=== PATIENT | female | born 1995 | race Caucasian/White ===

== ENCOUNTER 2018-03-11 08:39 | Emergency (ER) | payer OTHER ==
[~2018-03-11] VITALS: Ht 175.3 cm; Wt 68.0 kg
[~2018-03-11 08:39] MED LIST: CIPROFLOXACIN250 MG PO; HYDROCODON-ACE1 EA11 PO; K-TAB10 MEQ PO; MIRALAX17 GM PO; NORCO 5-325 TA1 EACH PO
[2018-03-11] MEDS ORDERED: MEDROL4 MG PO (09:09)
[2018-03-11] MEDS ORDERED: NAPROSYN500 MG PO (09:09)
== END 2018-03-11 09:20 | disposition home or self-care (01) ==
LOC: ED 08:39
DX: M77.9 Enthesopathy, unspecified (principal); F17.200 Nicotine dependence, unspecified, uncomplicated; Z88.5 Allergy status to narcotic agent
CPT/HCPCS: 73030; 99283

== ENCOUNTER 2018-08-06 15:33 | Emergency (ER) | payer OTHER ==
[~2018-08-06] VITALS: Ht 175.3 cm; Wt 68.0 kg
[~2018-08-06 15:33] MED LIST changes: +MEDROL4 MG PO; +NAPROSYN500 MG PO
[2018-08-06] MEDS ORDERED: ONDANSETRON ODT8 MG PO (18:00)
[2018-08-06] MEDS ORDERED: NORCO 5-325 TA1 EACH PO (18:00)
== END 2018-08-06 18:55 | disposition home or self-care (01) ==
LOC: ED 15:33
DX: S90.32XA Contusion of left foot, initial encounter (principal); F17.200 Nicotine dependence, unspecified, uncomplicated; Z88.5 Allergy status to narcotic agent; W22.8XXA Striking against or struck by other objects, initial encounter
CPT/HCPCS: 73630; 99283

== ENCOUNTER 2018-11-16 11:44 | Emergency (ER) | payer OTHER ==
[~2018-11-16] VITALS: Ht 175.3 cm; Wt 66.7 kg
[~2018-11-16 11:44] MED LIST changes: +ONDANSETRON ODT8 MG PO
== END 2018-11-16 12:02 | disposition home or self-care (01) ==
LOC: ED 11:44
DX: M54.6 Pain in thoracic spine (principal)

== ENCOUNTER 2018-11-20 20:11 | Emergency (ER) | payer OTHER ==
[~2018-11-20] VITALS: Ht 175.3 cm; Wt 66.7 kg
--- OUTSIDE RECORDS SUMMARY | 2018-11-20 20:16 | XMS ---
PreManage Notification: RICKI FLORES Security Building Construction Ironworker Events No recent Security Events currently on file CRITERIA MET - [facility] - 2 Visits in 30 Days CARE PROVIDERS There are no care providers on record at this time. Ray has no Care Guidelines for this patient. [facility] MO[facility] NOTE: Visits indicate total known visits. ED/C VISIT TRACKING (12 MO.) 11/20/2018 20:[address] [facility] [place] TYPE: Emergency COMPLAINT: - BACK PAIN/INJURY 11/16/2018 11:44 [facility] [place] TYPE: Emergency COMPLAINT: - BACK PAIN NON INJURY DIAGNOSES: - Pain in thoracic spine 08/06/2018 15:34 [facility] [place] TYPE: Emergency COMPLAINT: - L FOOT PAIN/INJURY DIAGNOSES: - Nicotine dependence, unspecified, uncomplicated - Contusion of left foot, initial encounter - Allergy status to narcotic agent status - Striking against or struck by other objects, initial encounter - Pain in left foot 03/11/2018 08:41 [facility] [place] TYPE: Emergency COMPLAINT: - L SHOULDER PAIN/NO INJURY DIAGNOSES: - Pain in left shoulder - Allergy status to narcotic agent status - Enthesopathy, unspecified - Nicotine dependence, unspecified, uncomplicated INPATIENT VISIT TRACKING (12 MO.) No inpatient visits to display in this time frame [email or web address]
[2018-11-20] MEDS ORDERED: IBUPROFEN600 MG PO (20:44)
[2018-11-20] MEDS ORDERED: NEXPLANON68 MG SUB-Q (20:45)
[2018-11-20] MEDS ORDERED: DIAZEPAM5 MG PO (21:52)
== END 2018-11-20 22:08 | disposition home or self-care (01) ==
LOC: ED 20:11
DX: M79.18 Myalgia, other site (principal); F17.200 Nicotine dependence, unspecified, uncomplicated; Z88.5 Allergy status to narcotic agent
CPT/HCPCS: 72040; 99283-25

== ENCOUNTER 2019-02-08 17:15 | Emergency (ER) | payer OTHER ==
[~2019-02-08] VITALS: Ht 175.3 cm; Wt 64.7 kg
[~2019-02-08 17:15] MED LIST changes: +DIAZEPAM5 MG PO; +IBUPROFEN600 MG PO; +NEXPLANON68 MG SUB-Q
--- OUTSIDE RECORDS SUMMARY | 2019-02-08 17:18 | XMS ---
PreManage Notification: RICKI FLORES Security Window Clerk Events No recent Security Events currently on file CRITERIA MET - Group Notification - PDMP CARE PROVIDERS There are no care providers on record at this time. Ray has no Care Guidelines for this patient. EKrupaDKrupa VISIT COUNT (12 MO.) 5 [facility] TOTAL 5 NOTE: Visits indicate total known visits. ED/UCC VISIT TRACKING (12 MO.) 02/08/2019 17:15 [facility] [place] TYPE: Emergency COMPLAINT: - CONSTIPATION/HEADACHE 11/20/2018 20:12 [facility] TYPE: Emergency COMPLAINT: - BACK PAIN/INJURY DIAGNOSES: - Pain in thoracic spine - Nicotine dependence, unspecified, uncomplicated - Allergy status to narcotic agent status - MYALGIA, OTHER SITE 11/16/2018 11:44 [facility] [place] TYPE: Emergency [...] visits to display in this time frame [email or web address]
== END 2019-02-08 18:08 | disposition home or self-care (01) ==
LOC: ED 17:15
DX: K59.00 Constipation, unspecified (principal); F17.200 Nicotine dependence, unspecified, uncomplicated; Z88.5 Allergy status to narcotic agent
CPT/HCPCS: 99283

== ENCOUNTER 2019-04-26 18:15 | Emergency (ER) | payer OTHER ==
[~2019-04-26] VITALS: Ht 175.3 cm; Wt 64.4 kg
--- OUTSIDE RECORDS SUMMARY | 2019-04-26 18:18 | XMS ---
PreManage Notification: RICKI FLORES Security Manager Star Events No recent Security Events currently on file CRITERIA MET - Group Notification - [facility] - Has Care Guidelines CARE PROVIDERS There are no care providers on record at this time. Ray has no Care Guidelines for this patient. Care History Medical/Surgical 02/09/2019 [facility] - [facility]W RECEIVED ED CASE MANAGEMENT CONSULT- PATIENT DOES NOT HAVE A PCP AND HAS [employer] INSURANCE. - [facility] CASE MANAGEMENT REFERRAL MADE- PATIENT HAS [employer] AND NO PCP. E.D. VISIT COUNT (12 MO.) 5 [facility] TOTAL 5 NOTE: Visits indicate total known visits. ED/UCC VISIT TRACKING (12 MO.) 04/26/2019 18:16 [facility] [place] TYPE: Emergency COMPLAINT: - DIZZINESS/6-8 WEEKS 02/08/2019 17:15 [facility] [place] TYPE: Emergency COMPLAINT: - CONSTIPATION/HEADACHE DIAGNOSES: - Nicotine dependence, unspecified, uncomplicated - Allergy status to narcotic agent status - Constipation, unspecified 11/20/2018 20:12 [facility] [place] TYPE: Emergency COMPLAINT: - BACK PAIN/INJURY DIAGNOSES: - Pain in thoracic spine - Nicotine dependence, unspecified, uncomplicated - Allergy status to narcotic agent status - MYALGIA, OTHER SITE 11/16/2018 11:44 [facility] [place] TYPE: Emergency COMPLAINT: - BACK PAIN NON INJURY DIAGNOSES: - Pain in thoracic spine 08/06/2018 15:[address] [facility] [place] TYPE: Emergency COMPLAINT: - L FOOT PAIN/INJURY DIAGNOSES: - Nicotine dependence, unspecified, uncomplicated - Contusion of left foot, initial encounter - Allergy status to narcotic agent status - Striking against or struck by other objects, initial encounter - Pain in left foot INPATIENT VISIT TRACKING (12 MO.) No inpatient visits to display in this time frame [email or web address]
[2019-04-26] MEDS ORDERED: PRENATAL FORMU1 EAC3 PO (18:34)
== END 2019-04-26 20:12 | disposition home or self-care (01) ==
LOC: ED 18:15
DX: O99.89 Other specified diseases and conditions complicating pregnancy, childbirth and the puerperium (principal); R42 Dizziness and giddiness; Z87.891 Personal history of nicotine dependence; Z88.5 Allergy status to narcotic agent; Z88.6 Allergy status to analgesic agent
CPT/HCPCS: 80053; 81001; 84703; 85025; 99284

== ENCOUNTER 2019-08-22 09:17 | Emergency (ER) | payer OTHER ==
[~2019-08-22] VITALS: Ht 172.7 cm; Wt 61.2 kg
[~2019-08-22 09:17] MED LIST changes: +PRENATAL FORMU1 EAC3 PO
--- OUTSIDE RECORDS SUMMARY | 2019-08-22 09:20 | XMS ---
PreManage Notification: RICKI FLORES Security Medical Claims Manager Events No recent Security Events currently on file CRITERIA MET - Group Notification - [facility] [place] - Has Care Guidelines CARE PROVIDERS There are no care providers on record at this time. Ray has no Care Guidelines for this patient. Care History Medical/Surgical 05/20/2019 [facility] - [facility] REFERRAL MADE- PATIENT DOES NOT HAVE A PCP 04/27/2019 [facility] - PATIENT HAS AN APT WITH DR SCHMIDT ON 05/19/19 DUE TO ED FOLLOW UP. - PATIENT HAS AN APT WITH DR SCHMIDT ON 04/28/19. 02/09/2019 [facility] - CHW RECEIVED ED CASE MANAGEMENT CONSULT- PATIENT DOES NOT HAVE A PCP AND HAS [employer] INSURANCE. - [facility] CASE MANAGEMENT REFERRAL MADE- PATIENT HAS [facility] AND NO PCP. E.D. VISIT COUNT (12 MO.) 7 [facility]. TOTAL 7 NOTE: Visits indicate total known visits. ED/UCC VISIT TRACKING (12 MO.) 08/22/2019 09:18 [facility] TYPE: Emergency COMPLAINT: - FINGER PAIN, UNKNOWN INJ 05/19/2019 18:40 [facility] [place] TYPE: Emergency COMPLAINT: - CRAMPING/ BLEEDING, APPX 8 WEEKS PG 05/18/2019 14:44 [facility] [place] TYPE: Emergency COMPLAINT: - VAGINAL BLEEDING,8 WEEKS DIAGNOSES: - Missed - Allergy status to narcotic agent status - Abnormal uterine and vaginal bleeding, unspecified - Personal history of nicotine dependence 04/26/2019 18:16 [facility] [place] TYPE: Emergency COMPLAINT: - DIZZINESS/6-8 WEEKS DIAGNOSES: - Dizziness and giddiness - Allergy status to analgesic agent status - Personal history of nicotine dependence - Allergy status to narcotic agent status - Oth diseases and conditions compl preg/chldbrth 02/08/2019 17:15 [facility] [place] TYPE: Emergency [...] INJURY DIAGNOSES: - Pain in thoracic spine INPATIENT VISIT TRACKING (12 MO.) No inpatient visits to display in this time frame [email or web address]
[2019-08-22] MEDS ORDERED: PROBIOTIC1 EAC1 PO (09:38)
[2019-08-22] MEDS ORDERED: KEFLEX500 MG PO (10:55)
== END 2019-08-22 11:13 | disposition home or self-care (01) ==
LOC: ED 09:17
DX: M79.645 Pain in left finger(s) (principal); F17.200 Nicotine dependence, unspecified, uncomplicated; Z88.5 Allergy status to narcotic agent; Z88.6 Allergy status to analgesic agent; Z79.899 Other long term (current) drug therapy
CPT/HCPCS: 73130; 99283-25

== ENCOUNTER 2019-10-07 03:08 | Emergency (ER) | payer OTHER ==
[~2019-10-07] VITALS: Ht 172.7 cm; Wt 55.8 kg
[~2019-10-07 03:08] MED LIST changes: +KEFLEX500 MG PO; +PROBIOTIC1 EAC1 PO
--- OUTSIDE RECORDS SUMMARY | 2019-10-07 03:10 | XMS ---
PreManage Notification: RICKI FLORES Security Mica Machine Operator Events No recent Security Events currently on file CRITERIA MET - Group Notification - [facility] - Has Care Guidelines CARE PROVIDERS There are no care providers on record at this time. Ray has no Care Guidelines for this patient. Care History Medical/Surgical 05/20/2019 [facility] - [facility] REFERRAL MADE- PATIENT DOES NOT HAVE A PCP 04/27/2019 [facility] - PATIENT HAS AN APT WITH DR SCHMIDT ON 05/19/19 DUE TO ED FOLLOW UP. - PATIENT HAS AN APT WITH DR SCHMIDT ON 04/28/19. 02/09/2019 [facility] - CHW RECEIVED ED CASE MANAGEMENT CONSULT- PATIENT DOES NOT HAVE A PCP AND HAS [employer] INSURANCE. - [facility] CASE MANAGEMENT REFERRAL MADE- PATIENT HAS [facility] AND NO PCP. E.D. VISIT COUNT (12 MO.) 8 [facility]. TOTAL 8 NOTE: Visits indicate total known visits. ED/UCC VISIT TRACKING (12 MO.) 10/07/2019 03:08 [facility] TYPE: Emergency COMPLAINT: - LUNG PAIN/COUGH/FEVER 08/22/2019 09:18 [facility] TYPE: Emergency COMPLAINT: - FINGER PAIN, UNKNOWN INJ DIAGNOSES: - Nicotine dependence, unspecified, uncomplicated - Other jail (current) drug therapy - Pain in left finger(s) - Allergy status to narcotic agent status - Allergy status to analgesic agent status 05/19/2019 18:40 [facility] TYPE: Emergency [...] Allergy status to narcotic agent status - Myalgia, other site - MYALGIA, OTHER SITE 11/16/2018 11:[address] [facility] TYPE: Emergency COMPLAINT: - BACK PAIN NON INJURY DIAGNOSES: - Pain in thoracic spine INPATIENT VISIT TRACKING (12 MO.) No inpatient visits to display in this time frame [email or web address]
== END 2019-10-07 03:50 | disposition home or self-care (01) ==
LOC: ED 03:08
DX: B34.9 Viral infection, unspecified (principal); F17.200 Nicotine dependence, unspecified, uncomplicated; Z88.5 Allergy status to narcotic agent
CPT/HCPCS: 87502; 99283

== ENCOUNTER 2019-11-15 15:43 | Emergency (ER) | payer OTHER ==
[~2019-11-15] VITALS: Ht 172.7 cm; Wt 58.1 kg
--- OUTSIDE RECORDS SUMMARY | 2019-11-15 15:46 | XMS ---
PreManage Notification: RICKI FLORES Security Software Design Manager Events No recent Security Events currently on file CRITERIA MET - [facility] - Has Care Guidelines CARE PROVIDERS Vishal Shaikh Internal Medicine: Pulmonary Disease 10/07/2019-Current PHONE: Unknown Ray has no Care Guidelines for this patient. Care History Medical/Surgical 10/07/2019 [facility] - PATIENT HAS AN APT 10/07/19 TO ESTABLISH CARE WITH DR SHAIKH. - Patient is currently established with [facility]. If patient is seen in the ED during business hours. Please contact CHWs at [facility]. Care Recommendation: If this patient has had 5 or more Emergency Department visits in the last 12 months.\T\nbsp; Patient will require education on the scope and purpose of the ED as an acute care provider not a Primary Care Provider and should not be utilized for chronic conditions.\T\nbsp; These are guidelines and the provider should exercise clinical judgment when providing care. 05/20/2019 [facility] - [facility] REFERRAL MADE- PATIENT DOES NOT HAVE A PCP 04/27/2019 [facility] - PATIENT HAS AN APT WITH DR SCHMIDT ON 05/19/19 DUE TO ED FOLLOW UP. - PATIENT HAS AN APT WITH DR SCHMIDT ON 04/28/19. E.D. VISIT COUNT (12 MO.) 9 [facility] TOTAL 9 NOTE: Visits indicate total known visits. ED/UCC VISIT TRACKING (12 MO.) 11/15/2019 15:44 [facility] TYPE: Emergency COMPLAINT: - INJURED RIGHT HAND 10/07/2019 03:08 [facility] TYPE: Emergency COMPLAINT: - LUNG PAIN/COUGH/FEVER DIAGNOSES: - Viral infection, unspecified - Fever, unspecified - Allergy status to narcotic agent status - Nicotine dependence, unspecified, uncomplicated 08/22/2019 09:18 [facility] TYPE: Emergency COMPLAINT: - FINGER PAIN, UNKNOWN INJ DIAGNOSES: - Nicotine dependence, unspecified, uncomplicated - Other rodent exterminator (current) drug therapy - Pain in left [...] site - MYALGIA, OTHER SITE 11/16/2018 11:44 [facility] [place] TYPE: Emergency COMPLAINT: - BACK PAIN NON INJURY DIAGNOSES: - Pain in thoracic spine INPATIENT VISIT TRACKING (12 MO.) No inpatient visits to display in this time frame [email or web address]
== END 2019-11-15 17:36 | disposition home or self-care (01) ==
LOC: ED 15:43
DX: S62.501A Fracture of unspecified phalanx of right thumb, initial encounter for closed fracture (principal); W22.8XXA Striking against or struck by other objects, initial encounter; F17.200 Nicotine dependence, unspecified, uncomplicated; Z88.5 Allergy status to narcotic agent
CPT/HCPCS: 73140; 90471; 90715; 99283-25

== ENCOUNTER 2021-07-12 13:40 | Emergency (ER) | payer OTHER ==
[~2021-07-12] VITALS: Ht 172.7 cm; Wt 58.1 kg
[2021-07-12] MEDS ORDERED: EPIN0.3P IM (15:48)
== END 2021-07-12 16:06 | disposition home or self-care (01) ==
LOC: ED 13:40
DX: T78.1XXA Other adverse food reactions, not elsewhere classified, initial encounter (principal); L27.2 Dermatitis due to ingested food; F17.200 Nicotine dependence, unspecified, uncomplicated; Z88.5 Allergy status to narcotic agent
CPT/HCPCS: 99284; J1100; Q0163

== ENCOUNTER 2023-06-30 13:16 | Emergency (ER) | payer OTHER ==
[~2023-06-30] VITALS: Ht 172.7 cm; Wt 85.3 kg
[~2023-06-30 13:16] MED LIST changes: +EPIN0.3P IM
[2023-06-30] MEDS ORDERED: CYCLOBENZAPRINE10 MG PO (14:13)
[2023-06-30] MEDS ORDERED: MELOXICAM15 MG PO (14:13)
[2023-06-30 14:34] VITALS: BP 134/73
== END 2023-06-30 14:36 | disposition home or self-care (01) ==
LOC: ED 13:16
DX: S39.012A Strain of muscle, fascia and tendon of lower back, initial encounter (principal); X58.XXXA Exposure to other specified factors, initial encounter; F17.200 Nicotine dependence, unspecified, uncomplicated; Z88.5 Allergy status to narcotic agent; Z79.899 Other long term (current) drug therapy
CPT/HCPCS: J1885; J3360